=== PATIENT | male | born 1995 | race African-American/Black ===

== ENCOUNTER 2021-09-10 09:06 | Emergency (ER) | payer OTHER ==
[~2021-09-10] VITALS: Ht 180.3 cm; Wt 104.4 kg
[2021-09-10] MEDS ORDERED: VALT500T PO (09:24)
[2021-09-10] MEDS ORDERED: PRED5PAK PO (09:24)
[2021-09-10] MEDS ORDERED: IBUP-1022 PO (09:24)
[2021-09-10] MEDS ORDERED: ASPIRIN 325 MG TAB PO ONE (13:20)
[2021-09-10 13:21] VITALS: BP 128/68
[2021-09-10] MEDS ORDERED: ASPI-1 PO (13:23)
[2021-09-10 14:11] LABS: INR 0.99; PROTHROMBIN TIME 13.5 SECONDS (12.7-14.5)
[2021-09-10 14:12] LABS: PARTIAL THROMBOPLASTIN TIME 25.9 SECONDS (25.9-37.0)
== END 2021-09-10 14:11 | disposition home or self-care (01) ==
LOC: M ED 09:06
DX: I82.612 Acute embolism and thrombosis of superficial veins of left upper extremity (principal); B02.21 Postherpetic geniculate ganglionitis; Z79.899 Other long term (current) drug therapy; Z79.82 Long term (current) use of aspirin

== ENCOUNTER 2021-10-14 16:37 | Emergency (ER) | payer OTHER ==
[~2021-10-14] VITALS: Ht 180.3 cm; Wt 103.3 kg
[~2021-10-14 16:37] MED LIST: ASPI-1 PO; IBUP-1022 PO; PRED5PAK PO; VALT500T PO
[2021-10-14 19:53] LABS: BASO # 0.1 10^3/uL (0.0-0.2); BASO % 0.6 % (0.0-1.0); EOS # 0.4 10^3/uL (0.0-0.5); EOS % 4.6 % (0.0-3.0); HEMATOCRIT 42.6 % (42.0-52.0); HEMOGLOBIN 13.7 g/dl (13.5-17.5); LYMPH # 3.2 10^3/uL (1.5-5.0); MEAN CORPUSCULAR HEMOGLOBIN 27.6 pg (27.0-33.0); MEAN CORPUSCULAR HGB CONC 32.2 g/dl (32.0-36.5); MEAN CORPUSCULAR VOLUME 85.9 fl (80.0-96.0); MONO # 0.6 10^3/uL (0.0-0.8); MONO % 7.8 % (2.0-8.0); NEUTROPHILS # 3.9 10^3/uL (1.5-8.5); NEUTROPHILS % 47.9 % (36.0-66.0); PLATELET COUNT, AUTOMATED 250 10^3/uL (150-450); RED BLOOD COUNT 4.96 10^6/uL (4.30-6.10); WHITE BLOOD COUNT 8.1 10^3/uL (4.0-10.0)
[2021-10-14 21:13] LABS: BLOOD UREA NITROGEN 17 MG/DL (7-18); CALCIUM LEVEL 9.3 MG/DL (8.5-10.1); CARBON DIOXIDE LEVEL 29 MEQ/L (21-32); CHLORIDE LEVEL 105 MEQ/L (98-107); CREATININE FOR GFR 1.36 MG/DL (0.70-1.30); GLOMERULAR FILTRATION RATE > 60.0 (>60); GLUCOSE, FASTING 85 MG/DL (70-100); POTASSIUM SERUM 4.2 MEQ/L (3.5-5.1); SODIUM LEVEL 138 MEQ/L (136-145)
[2021-10-14 21:15] LABS: CK-MB VALUE MASS 2.8 NG/ML (<3.6); MB/CK RELATIVE INDEX 0.46 (< OR =4)
[2021-10-14 21:37] VITALS: BP 126/63
== END 2021-10-14 21:45 | disposition home or self-care (01) ==
LOC: M ED 16:37
DX: N17.9 Acute kidney failure, unspecified (principal); R07.89 Other chest pain; R01.1 Cardiac murmur, unspecified; Z87.891 Personal history of nicotine dependence

== ENCOUNTER 2022-01-14 08:00 | Emergency (ER) | payer OTHER ==
[~2022-01-14] VITALS: Ht 180.3 cm; Wt 103.3 kg
[2022-01-14 11:46] LABS: BASO # 0.1 10^3/uL (0.0-0.2); BASO % 0.9 % (0.0-1.0); EOS # 0.1 10^3/uL (0.0-0.5); EOS % 1.4 % (0.0-3.0); HEMATOCRIT 48.1 % (42.0-52.0); HEMOGLOBIN 15.1 g/dl (13.5-17.5); LYMPH % 33.6 % (24.0-44.0); MEAN CORPUSCULAR HEMOGLOBIN 26.4 pg (27.0-33.0); MEAN CORPUSCULAR HGB CONC 31.4 g/dl (32.0-36.5); MEAN CORPUSCULAR VOLUME 84.2 fl (80.0-96.0); MONO # 0.5 10^3/uL (0.0-0.8); MONO % 8.6 % (2.0-8.0); NEUTROPHILS # 3.2 10^3/uL (1.5-8.5); NEUTROPHILS % 55.3 % (36.0-66.0); PLATELET COUNT, AUTOMATED 258 10^3/uL (150-450); RED BLOOD COUNT 5.71 10^6/uL (4.30-6.10); WHITE BLOOD COUNT 5.8 10^3/uL (4.0-10.0)
[2022-01-14] MEDS ORDERED: ISOVUE-370 76% 100ML VIAL As Ordered ONE (11:46)
[2022-01-14] MEDS ORDERED: NS 1,000 ML IV ONE (12:00)
[2022-01-14 12:07] LABS: INR 0.95; PARTIAL THROMBOPLASTIN TIME 26.6 SECONDS (24.8-34.2); PROTHROMBIN TIME 12.9 SECONDS (12.5-14.5)
[2022-01-14] MEDS ORDERED: ELIQ5TAB PO (13:59)
[2022-01-14 14:33] LABS: BLOOD UREA NITROGEN 18 MG/DL (9-23); CALCIUM LEVEL 8.8 MG/DL (8.5-10.1); CARBON DIOXIDE LEVEL 27 MMOL/L (20-31); CHLORIDE LEVEL 104 MMOL/L (98-107); CK-MB VALUE MASS < 1.0 NG/ML (<3.6); CREATININE FOR GFR 1.15 MG/DL (0.70-1.30); GLOMERULAR FILTRATION RATE > 60.0 (>60); GLUCOSE, FASTING 74 MG/DL (60-100); SODIUM LEVEL 139 MMOL/L (136-145)
[2022-01-14 14:36] LABS: CPK CREATINE PHOSPHOKINASE 327 U/L (46-171)
[2022-01-14] MEDS ORDERED: APIXABAN 5 MG TAB (ELIQUIS) PO ONE (14:40)
[2022-01-14 14:45] VITALS: BP 140/65
== END 2022-01-14 15:16 | disposition home or self-care (01) ==
LOC: M ED 08:00
DX: I82.622 Acute embolism and thrombosis of deep veins of left upper extremity (principal); F17.200 Nicotine dependence, unspecified, uncomplicated; Z79.01 Long term (current) use of anticoagulants; Z79.82 Long term (current) use of aspirin

== ENCOUNTER → 2022-02-21 | Outpatient (CLI) | payer OTHER ==
[~2022-02-21] MED LIST changes: +ELIQ5TAB PO; +PROHANCE 279.3MG/ML 15ML VIAL As Ordered ONE; +PROHANCE 279.3MG/ML 5ML VIAL As Ordered ONE
== END ==
LOC: M RAD 14:39
PROVIDERS: ATTEND Surgery Vascular Surgery
DX: I82.622 Acute embolism and thrombosis of deep veins of left upper extremity (principal)
CPT/HCPCS: 71552; A9576

== ENCOUNTER → 2022-07-06 | Outpatient (CLI) | payer OTHER ==
[~2022-07-06] MED LIST changes: -PROHANCE 279.3MG/ML 15ML VIAL As Ordered ONE; -PROHANCE 279.3MG/ML 5ML VIAL As Ordered ONE
== END ==
LOC: M RAD 14:00
PROVIDERS: ATTEND Internal Medicine Medical Oncology
DX: Z86.718 Personal history of other venous thrombosis and embolism (principal)

== ENCOUNTER 2022-07-16 21:55 | Emergency (ER) | payer OTHER ==
[~2022-07-16] VITALS: Ht 180.3 cm; Wt 106.2 kg
[2022-07-16 22:40] LABS: BASO # 0.1 10^3/uL (0.0-0.2); BASO % 0.8 % (0.0-1.0); EOS # 0.2 10^3/uL (0.0-0.5); EOS % 2.6 % (0.0-3.0); HEMATOCRIT 45.4 % (42.0-52.0); HEMOGLOBIN 14.2 g/dl (13.5-17.5); LYMPH # 3.3 10^3/uL (1.5-5.0); LYMPH % 38.1 % (24.0-44.0); MEAN CORPUSCULAR HEMOGLOBIN 26.3 pg (27.0-33.0); MEAN CORPUSCULAR HGB CONC 31.3 g/dl (32.0-36.5); MEAN CORPUSCULAR VOLUME 84.2 fl (80.0-96.0); MONO # 0.7 10^3/uL (0.0-0.8); NEUTROPHILS # 4.3 10^3/uL (1.5-8.5); NEUTROPHILS % 50.3 % (36.0-66.0); PLATELET COUNT, AUTOMATED 265 10^3/uL (150-450); RED BLOOD COUNT 5.39 10^6/uL (4.30-6.10); WHITE BLOOD COUNT 8.5 10^3/uL (4.0-10.0)
[2022-07-16 22:50] LABS: INR 0.96
[2022-07-16 22:51] LABS: PARTIAL THROMBOPLASTIN TIME 25.1 SECONDS (24.8-34.2)
[2022-07-16 23:04] LABS: LIPASE 41 U/L (12-53)
[2022-07-16 23:06] LABS: ALBUMIN 4.1 G/DL (3.2-5.2); ALKALINE PHOSPHATASE 53 U/L (46-116); ALT/SGPT 23 U/L (7.0-40); AST/SGOT 33 U/L (<34); BILIRUBIN,DIRECT 0.1 MG/DL (<0.4); BILIRUBIN,TOTAL 0.4 MG/DL (0.3-1.2); BLOOD UREA NITROGEN 20 MG/DL (9-23); CALCIUM LEVEL 9.1 MG/DL (8.5-10.1); CARBON DIOXIDE LEVEL 31 MMOL/L (20-31); CHLORIDE LEVEL 105 MMOL/L (98-107); CK-MB VALUE MASS < 1.0 NG/ML (<3.6); CREATININE FOR GFR 1.26 MG/DL (0.70-1.30); GLOMERULAR FILTRATION RATE > 60.0 (>60); GLUCOSE, FASTING 93 MG/DL (60-100); POTASSIUM SERUM 4.6 MMOL/L (3.5-5.1); SODIUM LEVEL 141 MMOL/L (136-145)
[2022-07-16 23:26] LABS: CPK CREATINE PHOSPHOKINASE 1275 U/L (46-171); MB/CK RELATIVE INDEX 0.07 (< OR =4)
[2022-07-17 02:00] LABS: CK-MB VALUE MASS < 1.0 NG/ML (<3.6)
[2022-07-17 02:12] LABS: CPK CREATINE PHOSPHOKINASE 1331 U/L (46-171); MB/CK RELATIVE INDEX 0.07 (< OR =4)
[2022-07-17] MEDS ORDERED: ISOVUE-370 76% 100ML VIAL As Ordered ONE (02:41)
[2022-07-17] MEDS ORDERED: NS 1,000 ML IV ONE (02:50)
[2022-07-17 03:04] VITALS: BP 115/56; TEMP 98; O2SAT 100
== END 2022-07-17 06:35 | disposition home or self-care (01) ==
LOC: M ED 21:55
DX: R07.89 Other chest pain (principal); Z86.718 Personal history of other venous thrombosis and embolism; Z79.01 Long term (current) use of anticoagulants; Z79.82 Long term (current) use of aspirin
CPT/HCPCS: 36415; 71275; 80048; 80076; 82550; 82553; 83690; 84484; 85025; 85610; 85730; 93005; 99284; Q9967

== ENCOUNTER 2022-08-02 17:58 | Emergency (ER) | payer OTHER ==
[~2022-08-02] VITALS: Ht 180.3 cm; Wt 105.1 kg
[2022-08-02 17:59] VITALS: TEMP 97.5
[2022-08-02] MEDS ORDERED: KETOROLAC 60MG 2ML VIAL IM ONE (20:55)
[2022-08-02] MEDS ORDERED: methocarbamoL 750 MG TAB PO ONE (20:55)
[2022-08-02] MEDS ORDERED: traMADol 50 MG TAB PO ONE (20:55)
[2022-08-02] MEDS ORDERED: LIDOCAINE 5% (LIDODERM) PATCH TD ONE (20:55)
[2022-08-02] MEDS ORDERED: NAPR-837 PO (21:07)
[2022-08-02] MEDS ORDERED: TRAM50TA2 PO ×2 (21:07→21:09)
[2022-08-02] MEDS ORDERED: METH-1165 PO (21:07)
[2022-08-02] MEDS ORDERED: LIDO5DIS41 TOP (21:07)
[2022-08-02 21:18] VITALS: BP 131/70; O2SAT 100
== END 2022-08-02 21:28 | disposition home or self-care (01) ==
LOC: M ED 17:58
DX: M54.16 Radiculopathy, lumbar region (principal); Z86.718 Personal history of other venous thrombosis and embolism; B02.21 Postherpetic geniculate ganglionitis
CPT/HCPCS: 93971; 96372; 99283; J1885

== ENCOUNTER → 2022-09-19 | Outpatient (CLI) | payer OTHER ==
[~2022-09-19] MED LIST changes: +ELIQ2.5T PO; +LIDO5DIS41 TOP; +METH-1165 PO; +NAPR-837 PO; +TRAM50TA2 PO
== END ==
LOC: M CARPUL 09:33
PROVIDERS: ATTEND Student in an Organized Health Care Education/Training Program
DX: I51.7 Cardiomegaly (principal)

== ENCOUNTER 2022-12-11 13:13 | Emergency (ER) | payer OTHER ==
[~2022-12-11] VITALS: Ht 180.3 cm; Wt 106.4 kg
[2022-12-11 16:28] VITALS: BP 117/77; TEMP 98.6; O2SAT 98
== END 2022-12-11 16:31 | disposition home or self-care (01) ==
LOC: M ED 13:13
DX: M54.2 Cervicalgia (principal); Z79.899 Other long term (current) drug therapy; Z79.1 Long term (current) use of non-steroidal anti-inflammatories (NSAID); Z79.01 Long term (current) use of anticoagulants

== ENCOUNTER → 2023-04-05 | Outpatient (REF) | LOC: M PLAIMG 09:08 | PROVIDERS: ATTEND Internal Medicine | DX: R52 Pain, unspecified (principal) ==

== ENCOUNTER → 2023-10-04 | Outpatient (CLI) | payer OTHER | LOC: M SOG 07:49 | PROVIDERS: ATTEND Physician Assistant | DX: M25.532 Pain in left wrist (principal) ==

== ENCOUNTER → 2023-12-06 | Outpatient (CLI) | payer OTHER ==
[~2023-12-06] MED LIST changes: +ISOVUE-300 61% 100ML VIAL As Ordered ONE; +LIDOCAINE 1% MDV 20ML VIAL As Ordered ONE; +PROHANCE 279.3MG/ML 5ML VIAL As Ordered ONE
== END ==
LOC: M RAD 06:24
PROVIDERS: ATTEND Physician Assistant
DX: M25.532 Pain in left wrist (principal)
CPT/HCPCS: 25246; 73223; 77002; A9576; Q9967